=== PATIENT | female | born 1985 | race Caucasian/White ===

== ENCOUNTER 2025-02-21 12:34 | Outpatient (CLI) | payer OTHER, MEDICAID, SELFPAY ==
--- NOTE | 2025-02-21 12:15 | CRLHL7_ITS ---
For Patients: As a result of the Century Cures Act, medical imaging exams and procedure reports are released immediately into your electronic medical record. You may view this report before your referring provider. If you have questions, please contact your health care provider. OBSTETRICAL ULTRASOUND ??? FOLLOW-UP, 02/21/2025 INDICATION: Growth. CLINICAL HISTORY: MARIBEL by US: 05/29/2025 Gestational Age: 26 weeks 1 day COMPARISON: Previous imaging at [place]. TECHNIQUE: Real-time malloy-scale transabdominal imaging of the fetus was performed. FINDINGS: Fetus: Single Cervix: Visualized, 5 cm positioning: Vertex Amniotic Fluid: 6.4 cm SDP Placenta technique: Transabdominal Placenta position: Anterior heart rate: 139 bpm BIOMETRY: BPD: 6.7 cm, 27 weeks 0 days, 72% HC: 24.7 cm, 26 weeks 6 days, 48% AC: 23.3 cm, 27 weeks 5 days, 84% FL: 5 cm, 26 weeks 6 days, 59% FL/AC Ratio: 21.44% HC/AC ratio: 1.06 EFW: 1052 grams; 2 lbs. 5 oz. age by this ultrasound: 27 weeks 1 day MARIBEL by this ultrasound: 05/22/2025 Percentile by MARIBEL: 84% IMPRESSION: 1. Sonographic gestational age 27 weeks 1 day and sonographic due date 05/22/2025. Sonographic age is 1 week ahead of the clinical age. 2. Estimated weight is 84th percentile. Abdominal circumference is 84th percentile. CANDELARIO ACOSTA M.D. Diagnostic Radiologist [email or web address] Transcribed: 5:[address]/Dictated by: Candelario Acosta MD @ 02/21/2025 3:10:00 PM (Electronically Signed)
== END 2025-02-21 12:35 | disposition home or self-care (01) ==
LOC: US 12:34
PROVIDERS: PCP Student in an Organized Health Care Education/Training Program; Visit Provider Advanced Practice Midwife
DX: O36.5920 Maternal care for other known or suspected poor fetal growth, second trimester, not applicable or unspecified (principal); Z3A.26 26 weeks gestation of pregnancy
CPT/HCPCS: 76815

== ENCOUNTER 2025-02-21 12:41 | Outpatient (CLI) | payer OTHER, MEDICAID, SELFPAY | END 2025-02-21 12:42 | disposition home or self-care (01) | PROVIDERS: PCP Student in an Organized Health Care Education/Training Program; Visit Provider Advanced Practice Midwife | DX: O09.522 Supervision of elderly multigravida, second trimester (principal); O26.892 Other specified pregnancy related conditions, second trimester; Z67.91 Unspecified blood type, Rh negative; Z3A.26 26 weeks gestation of pregnancy | CPT/HCPCS: 82306; 82310; 82607; 82728; 84425; 86592; 86850; J2791 ==

== ENCOUNTER 2025-03-21 12:46 | Outpatient (CLI) | payer MEDICAID, SELFPAY ==
--- NOTE | 2025-03-21 13:00 | CRLHL7_ITS ---
For Patients: As a result of the Century Cures Act, medical imaging exams and procedure reports are released immediately into your electronic medical record. You may view this report before your referring provider. If you have questions, please contact your health care provider. OB ULTRASOUND MARIBEL by US: 05/29/2025. GA: 30 w, 1 d. Single. Comparison: 02/21/2025. INDICATION: Bariatric surgery, growth. TECHNIQUE: Real time grayscale imaging of the fetus was performed. Transabdominal. CERVIX: Not visualized. POSITIONING: Vertex. AMNIOTIC FLUID: 24.6 cm AARON. 8.4 cm. SDP (N: greater than 2 x 1 cm) PLACENTA: Technique: Transabdominal. PLACENTA POSITION: Anterior. DOPPLER: heart rate: 132 bpm. BIOMETRY: BPD: 7.9 cm. 31 w, 5 d, 82.6 percent. HC: 29.1 cm. 32 w, 1 d, 70.8 percent. AC: 27.8 cm. 31 w, 6 d, 88.2 percent. FL: 5.7 cm. 30 w, 0 d, 29.5 percent. FL/AC ratio: 20.6 percent. HC/AC ratio: 1.1. EFW: 1730 g. Weight: 3 lbs, 13 oz. age by this US: 31 w, 3 d. MARIBEL by this US: 05/20/2025. Percentile by MARIBEL: 76.2 percent. IMPRESSION: 1. Sonographic gestational age 31 weeks 3 days and sonographic due date 05/20/2025. Sonographic age is 9 days ahead of the clinical age. 2. Estimated weight 76th percentile. Abdominal circumference 88th percentile. 3. Amniotic fluid single deepest pocket 8.4 cm. AARON 24.6 cm. Candelario Andrade M.D. Diagnostic Radiologist [email or web address] DIANA/aixa kruse/Dictated by: Candelario Andrade MD @ 03/21/2025 2:03:00 PM (Electronically Signed)
== END 2025-03-21 12:47 | disposition home or self-care (01) ==
LOC: US 12:46
PROVIDERS: PCP Student in an Organized Health Care Education/Training Program; Visit Provider Advanced Practice Midwife
DX: O09.523 Supervision of elderly multigravida, third trimester (principal); O36.5930 Maternal care for other known or suspected poor fetal growth, third trimester, not applicable or unspecified; Z98.84 Bariatric surgery status; Z3A.30 30 weeks gestation of pregnancy
CPT/HCPCS: 76816

== ENCOUNTER 2025-04-04 11:10 | Outpatient (CLI) | payer OTHER, MEDICAID, SELFPAY ==
--- NOTE | 2025-04-04 11:30 | CRLHL7_ITS ---
For Patients: As a result of the Cures Act, medical imaging exams and procedure reports are released immediately into your electronic medical record. You may view this report before your referring provider. If you have questions, please contact your health care provider. OB ULTRASOUND MARIBEL by US: 05/29/2025. GA: 32 w, 1 d. Single. Comparison: Ultrasound 03/21/2025, 02/21/2025. INDICATION: Mild polyhydramnios. TECHNIQUE: Multiple transabdominal grayscale, color and M-Mode Doppler images of the fetus were obtained. CERVIX: Not visualized. POSITIONING: Vertex. AMNIOTIC FLUID: 24.1 cm AARON. 7.9 cm. SDP PLACENTA: Technique: Transabdominal. PLACENTA POSITION: Anterior. DOPPLER: heart rate: 154 bpm. IMPRESSION: Upper limits normal amniotic fluid. Randal Simms M.D. Body/Diagnostic Radiologist [email or web address] YAMILE/aixa jkarthik/Dictated by: Randal Simms MD @ 04/09/2025 9:32:00 AM (Electronically Signed)
== END 2025-04-04 11:11 | disposition home or self-care (01) ==
LOC: US 11:10
PROVIDERS: PCP Student in an Organized Health Care Education/Training Program; Visit Provider Advanced Practice Midwife
DX: O40.3XX0 Polyhydramnios, third trimester, not applicable or unspecified (principal); Z3A.32 32 weeks gestation of pregnancy
CPT/HCPCS: 76815

== ENCOUNTER 2025-04-18 11:51 | Outpatient (CLI) | payer OTHER, MEDICAID, SELFPAY ==
--- NOTE | 2025-04-18 12:15 | CRLHL7_ITS ---
For Patients: As a result of the Century Cures Act, medical imaging exams and procedure reports are released immediately into your electronic medical record. You may view this report before your referring provider. If you have questions, please contact your health care provider. LIMITED OB ULTRASOUND FOLLOW-UP MARIBEL by US: 05/29/2025. GA: 34 w, 1 d. INDICATION: AMA, Bariatric Surgery. TECHNIQUE: Real time malloy scale imaging of the fetus was performed. Evaluate anatomy. Transabdominal. position: Vertex. Cervix: Not Visualized. Placenta: Anterior. Technique: Transabdominal. Amniotic Fluid: 24.4 cm. DSP: 7.9 cm SDP (normal - greater than 2 x 1 cm) Heart Rate: 123 bpm. BIOMETRY BPD: 8.7 cm, 35 weeks, 0 days, 74th percentile. HC: 30.7 cm, 34 weeks 1 day, 17th percentile. AC: 31.1 cm, 35 weeks 0 days, 78th percentile. FL: 6.4 cm, 33 weeks 1 day, 17th percentile. FL/AC Ratio: 20.66. HC/AC Ratio: 0.99. EFW: 2428 grams, 5 lb, 6 oz. Age by This US: 34 weeks 2 days. MARIBEL by This US: 05/28/2025. Percentile by MARIBEL: 53rd percentile. IMPRESSION: 1. Sonographic gestational age 34 weeks 2 days and sonographic due date 05/28/2025. Good correlation with dates. 2. Estimated weight 53rd percentile. Abdominal circumference 78th percentile. 3. Amniotic fluid single deepest pocket 7.9 cm. AARON 24.4 cm. Candelario Andrade M.D. Diagnostic Radiologist [email or web address] DIANA/vipul DW/Dictated by: Candelario Andrade MD @ 04/19/2025 7:07:00 AM (Electronically Signed)
== END 2025-04-18 11:52 | disposition home or self-care (01) ==
LOC: US 11:51
PROVIDERS: PCP Student in an Organized Health Care Education/Training Program; Visit Provider Advanced Practice Midwife
DX: O09.523 Supervision of elderly multigravida, third trimester (principal); Z3A.34 34 weeks gestation of pregnancy; Z98.84 Bariatric surgery status
CPT/HCPCS: 76816

== ENCOUNTER 2025-04-18 12:30 | Outpatient (CLI) | payer OTHER, MEDICAID, SELFPAY | END 2025-04-18 12:31 | disposition home or self-care (01) | LOC: NFLDREF 04-23 18:56 | PROVIDERS: PCP Student in an Organized Health Care Education/Training Program; Referring Provider Student in an Organized Health Care Education/Training Program; Visit Provider Advanced Practice Midwife | DX: O09.523 Supervision of elderly multigravida, third trimester (principal); Z3A.34 34 weeks gestation of pregnancy | CPT/HCPCS: 82306; 82310; 82607; 82728 ==

== ENCOUNTER 2025-05-02 12:08 | Outpatient (CLI) | payer OTHER, MEDICAID, SELFPAY ==
--- NOTE | 2025-05-02 12:15 | CRLHL7_ITS ---
For Patients: As a result of the Cures Act, medical imaging exams and procedure reports are released immediately into your electronic medical record. You may view this report before your referring provider. If you have questions, please contact your health care provider. OB ULTRASOUND MARIBEL by US: 05/29/2025. GA: 36 w, 1 d. COMPARISON: 04/18/2025, 04/04/2025, 03/21/2025. INDICATION: Mild polyhydramnios. TECHNIQUE: Real time malloy scale imaging of the fetus was performed. Transabdominal imaging performed. CERVIX: Not visualized. POSITIONING: Vertex. AMNIOTIC FLUID: 26.9 cm AARON. 9 cm. SDP (N: greater than 2 x 1 cm). PLACENTA: Technique: Transabdominal. PLACENTA POSITION: Anterior. DOPPLER: heart rate: 147 bpm. IMPRESSION: Amniotic fluid single deepest pocket 9.0 cm. AARON 26.9 cm. Candelario Andrade M.D. Diagnostic Radiologist [email or web address] RAISA/Dictated by: Candelario Andrade MD @ 05/02/2025 6:41:00 PM (Electronically Signed)
== END 2025-05-02 12:09 | disposition home or self-care (01) ==
LOC: US 12:08
PROVIDERS: PCP Student in an Organized Health Care Education/Training Program; Visit Provider Advanced Practice Midwife
DX: O40.3XX0 Polyhydramnios, third trimester, not applicable or unspecified (principal); Z3A.36 36 weeks gestation of pregnancy
CPT/HCPCS: 76815

== ENCOUNTER 2025-05-02 13:21 | Outpatient (CLI) | payer OTHER, MEDICAID, SELFPAY ==
[2025-05-03 13:51] LABS: Strep B DNA Probe Negative (Negative)
[2025-05-03 14:16] LABS: Strep B Susceptibility Needed? No
== END 2025-05-02 13:22 | disposition home or self-care (01) ==
LOC: NFLDREF 13:22
PROVIDERS: PCP Student in an Organized Health Care Education/Training Program; Visit Provider Obstetrics & Gynecology
DX: Z34.93 Encounter for supervision of normal pregnancy, unspecified, third trimester (principal); Z3A.36 36 weeks gestation of pregnancy
CPT/HCPCS: 87081; 87653

== ENCOUNTER 2025-05-11 03:03 | Inpatient (IN) | payer OTHER, MEDICAID, SELFPAY ==
[2025-05-11] VITALS (33 sets, daily range): BP systolic 105–151; BP diastolic 62–90; PULSE 63–118; RESP 14–20; TEMP 36.6–37; O2SAT 91–100; BMI 33.9
[2025-05-11 03:33] LABS: Hematocrit 38.0 % (33.0-51.0); Hemoglobin* 12.9 gm/dL (12.0-16.0); Immature Granulocytes Abs Auto 0.04 K/uL (0.00-0.30); Immature Granulocytes Pct Auto 0.4 %; Lymphocytes Absolute Auto 2.31 K/uL (0.90-2.90); Mean Corpuscular HGB Conc 34 gm/dL (32-36); Mean Corpuscular Hemoglobin 31 pg (26-34); Mean Corpuscular Volume 90 fL (80-100); RDW Coefficient of Variation % 12.9 % (11.5-15.5); Red Blood Count 4.21 m/uL (4.00-5.20); White Blood Count* 9.62 K/uL (4.50-11.00)
[2025-05-11 03:35] LABS: Slide Review Reflex No
--- NOTE | 2025-05-11 08:11 | W.PM.LDBA ---
Subjective History of Present Illness Date Seen: 05/11/25 Narrative: Patient is being admitted to Labor and Delivery for early labor. She is a 40 year old at 37 weeks, 3 days gestation. Her full history and physical was dictated by Dr. Connell on 05/09. Please see this for details. She has been kaylee regularly throughout the night. She has had periods of intense contractions, though these have most recently become less intense. Her cervical exam at admission was at 2 AM was 2 / 50 / -4. Repeat exam at 2:50 AM was 3.5 / 50 / -3. Specific Issues/Plans G 4 P 3 S.O.: [place]. (his first baby) Transfer at 23.1 weeks from [facility] # contractions 03/29. Received Betamethasone x2. Records received but no US records. No cervical length or concerns per her report. GBS negative at 31 weeks at [facility] Pt went back to [facility] on 04/16, noted to be unchanged at 2cm. #Polyhydramnios, Mild: dx at 30wks. AARON 24.6, SDP 8.4. testing worksheet completed 03/22. ? AARON every 2 weeks starting at 28 weeks or time of diagnosis 32 weeks: AARON 24.1 34 weeks: AARON 24.4 36 weeks: AARON: 26.9cm ? Growth US every 4 weeks? Recommend delivery: 39 0/7-40 6/7 weeks? IOL request from sent 05/02/25 for 05/26/25 at 39 4/7 weeks. # Multigravida Advanced Maternal Age NIPT within normal limits Plan level 2 ultrasound with MFM: Completed with [facility] Recommended by prior practice to consider IOL at 39 weeks; declines # Rh negative. RhoGAM: given 02/21 # History of bariatric surgery (Gastric bypass in 2019) CBC, ferritin, iron, vitamin B12, thiamine, folate, calcium, and vitamin-D labs drawn with initial OB labs. Vitamin-D and ferritin were low. Needs CBC, iron, ferritin, vitamin B12, calcium, and vitamin-D every trimester 26 weeks: All WNL 3rd trimester labs: ordered for 34 weeks Plan every 4 week growth ultrasounds in the 3rd trimester (conflicting info in [place] records, [facility] recommended growth at 26-28 and again at 32-34, her primary Ob recommended growths every 4 weeks) 26 weeks: EFW 84%ile 30 weeks: EFW 76%ile 34 & 38 weeks: requested via testing form on 03/21/25 We will not perform a 1 hour glucose test, but we will have her check fasting and postprandial blood glucose levels for 1 week at 28 weeks. [facility] at 38 weeks for hx of gastric bypass ([facility] recommended prior to 40 0/7 weeks) [place] recommended delivery at > 39 0/7 weeks? # Anemia in : Mild anemia due to iron deficiency. Iron studies consistent with iron deficiency. Oral supplementation every other day. Hgb 12.2 at 34 weeks # Vitamin-D deficiency. Taking daily vitamin D3 800 IU # Constipation Recommend discontinuing oral iron and continuing with iron infusions. Recommend at least 64 oz of water per day and 2 tablets senna twice daily until stools are regular, then she can cut back to q.h.s. and as needed. # Generalized anxiety disorder: Not on medication. No mood concerns. # Bipolar disorder: Taking Ziprasidone (Geodon) and advised to continue by psychiatry and PCP. infant may have withdrawal symptoms Per patient, MFM consult re: use of Geodon did not occur. Consider consult or discuss MotherToBaby info with patient at 28 week visit. Pt declines consult Placed psychiatry referral, as her psych left the practice. Ordered US f/u on anatomy (diaphragm and right forearm) with MFM at [place]: See 02/21 note 10/22/2024: Pap smear: LSIL, negative HPV 10/22/2024: Chlamydia and gonorrhea negative, syphilis nonreactive, HIV negative, rubella positive/2.1, varicella positive/2.0, hepatitis-C antibody negative, hepatitis-B antigen nonreactive, hepatitis-B antibody positive/66.39, hepatitis B core antibody negative 10/24/2024: NIPT: Low risk, carrier screening negative 02/14/2025: Hemoglobin 10.7, platelets 264, blood type A negative, antibody screen negative, urine culture no growth, Ultrasound 10/22/2024: Single intrauterine with dating per full report. Ultrasound 12/27/2024: Boo intrauterine . Cephalic presentation. No anomalies detected. However, the anatomy survey remains incomplete due to position. Recommend follow-up in 1-4 weeks for completion of anatomy survey. Normal EFW. Subjectively normal amniotic fluid volume. Placenta fundal, no evidence of Vasa or placenta previa. Ultrasound 01/10/2025: Boo intrauterine in breech presentation. Most of the anatomy survey images were completed and no abnormalities were detected. However, the diaphragm and right forearm remains suboptimal due to position. Recommendation: Consider an additional attempt to complete the anatomy survey during the next ultrasound scheduled for growth assessment or sooner if patient prefers. Ultrasound 04/10/2025: SIUP AMNIOTIC FLUID: 24.1 cm AARON. 7.9 cm. SDP. IMPRESSION: Upper limits normal amniotic fluid. 04/18/25: EFW 53%, AC 78%, cephalic. Mental Health: 04/04 Tdap: 04/18 OB - Problem Based A/P Additional Plan (1) Polyhydramnios affecting : Problem details: Mild Status: Acute (2) Threatened labor: Problem details: at 31 weeks Status: Acute Plan Early labor, progressing steadily in cervical dilation. By cervical dilation, she is currently 5.5 cm, because of active labor by that definition. Given mild polyhydramnios, advanced cervical dilation and lack of engagement of head, I cannot support discharge of patient due to risk of cord prolapse. I recommended augmentation of early labor with Pitocin and ambulation to bring head into pelvis. I will then plan for AROM when this can be more safely performed. Continuous monitoring while on Pitocin. Anticipate spontaneous vaginal delivery. Delivery/Labor/Induction Plan Induction method: per pitocin protocol OB Exam Physical Exam Vital signs: Temp Pulse Resp BP Pulse Ox 98.6 F 87 18 116/65 98 05/11/25 02:02 05/11/25 04:52 05/11/25 02:02 05/11/25 04:52 05/11/25 02:01 Narrative: Physical exam: General: No acute distress Psych: Alert and oriented x3 HEENT: Normocephalic, atraumatic Heart: Regular rate and rhythm, no murmur rub or gallop Lungs: Clear to auscultation bilaterally Abdomen: Soft, nontender, gravid, cephalic lie Lower extremities: Trace bilateral edema, no erythema Pelvic exam: Cervix 5.5 cm, 60% effaced, -3 station. head is directly over the cervix, but not engaged. tracing: Baseline 130, accelerations present, no decelerations, moderate variability. Most recent history, contractions are occurring approximately every 5 minutes.
[2025-05-11] MEDS: LACTATED RINGERS 1000 ML 1,000 ML 125 ML IV ×2 (09:59→14:28)
[2025-05-11] MEDS: OXYTOCIN 30 unit/500 ML in NS 30 UNIT/500 ML BAG IVPB (10:00)
--- NOTE | 2025-05-11 14:32 | P.OBPN_ITS ---
Subjective Time Seen by Provider: 14:15 Date Seen: 05/11/25 Narrative: Eli is a 40 yo woman at 37 3/7 weeks' gestation here for labor in the setting of polyhydramnios. At last check about 4 hours ago, cervix was dilated to 5.5 cm but station was still high. Oxytocin infusion was started and ambulation was recommended. She is now feeling contractions more frequently with more pressure. Objective Exam: Gen - breathing and tearful through contractions SVE - 5.5 / 80 / -3 with tensely bulging bag head moved over cervix during contractions with help of fundal and suprapubic pressure. AROM for clear fluid Vital Signs: Last Vital Signs Temp 97.9 F 05/11/25 14:27 Pulse 77 05/11/25 14:13 Resp 14 05/11/25 09:01 BP 127/72 05/11/25 14:13 Pulse Ox 98 05/11/25 02:01 Comments: tracing: Baseline 135 / accelerations present / no decelerations / m oderate variability. Contractions Q 2 minutes Contractions Pitocin Rate (mU/min): 6 Assessment Assessment: early labor Amniotic Membrane Status: AROM Status: Category l Heart Rate Baseline: 135 Data Review Specialist Variability: Moderate (6-25) Monitor Accelerations: Absent Monitor Decelerations: None Tracing Comments: Category 1 Labor Progress: Not yet active labor, but change in effacement. Now s/p AROM Maternal Status: Reassuring Plan Plan: Continuous monitoring Antcipate .
[2025-05-11] MEDS: LIDOCAINE 2% (PF) 5 ML VIAL EPIDURAL (15:51)
[2025-05-11] MEDS: ROPIVACAINE 0.2% 100 ml 100 ML 12 MG EPIDURAL (15:51)
--- NOTE | 2025-05-11 15:58 | PM.ANBPRC ---
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 [employer] What is your current living situation?: I presently have a place to live Problems where you live: no known problems In the past 12 months, utilities in danger of being shut off: no In past 12 months, lack of transportation kept you from medical appts, meetings, work, or getting things needed for daily living: no In the past 12 mos, have been you worried that your food would run out before you had money to buy more?: never true In the past 12 mos, the food you bought just didn't last and you didn't have money to buy more?: never true Smoking Status: Never smoker How often does anyone, including family, friends and others, physically hurt you: never How often does anyone, including family, friends and others, insult or talk down to you: never How often does anyone, including family, friends and others, threaten you with harm: never How often does anyone, including family, friends and others, scream or curse at you: never Meds Home Medications and Allergies Home Medications ?Medication ?Instructions ?Recorded ?Confirmed ?Type cholecalciferol (vitamin D3) 10 20 mcg PO DAILY 01/31/25 05/11/25 History mcg (400 unit) tablet (Vitamin D3) cyanocobalamin (vitamin B-12) 1,000 mcg subcut MONTHLY 01/31/25 05/11/25 History 1,000 mcg/mL injection solution docosahexaenoic acid 200 mg 200 mg PO DAILY 01/31/25 05/11/25 History capsule ( DHA) ferrous sulfate 325 mg (65 mg 325 mg PO Q1D 01/31/25 05/11/25 History iron) tablet loratadine 10 mg tablet (Claritin) 10 mg PO QDAY 01/31/25 05/11/25 History sennosides 8.6 mg tablet (senna) 17.2 mg PO BID PRN constipation 01/31/25 05/11/25 History ziprasidone HCl 20 mg capsule 20 mg PO BID 01/31/25 05/11/25 History Allergies Allergy/AdvReac Type Severity Reaction Status Date / Time No Known Drug Allergies Allergy Verified 05/09/25 12:43 Results Labs Labs: Laboratory Results - last 24 hr 05/11/25 03:28 WBC 9.62 RBC 4.21 Hgb 12.9 Hct 38.0 MCV 90 MCH 31 MCHC 34 RDW Coeff of Ray 12.9 Plt Count 217 Neut % (Auto) 69.1 Lymph % (Auto) 24.0 [place] % (Auto) 5.7 Eos % (Auto) 0.7 Baso % (Auto) 0.1 Neut # (Auto) 6.64 Lymph # (Auto) 2.31 [place] # (Auto) 0.50 Eos # (Auto) 0.07 Baso # (Auto) 0.01 Abs Immat Gran (auto) 0.04 Imm/Tot Granulo (auto) 0.4 Blood Type A Negative Antibody Screen POSITIVE Vital Signs Vital Signs: Last Vital Signs Temp 97.9 F 05/11/25 14:27 Pulse 89 05/11/25 15:55 Resp 14 05/11/25 09:01 BP 123/65 05/11/25 15:55 Pulse Ox 97 05/11/25 15:54 Weight: 101.151 kg Height: 172.72 cm Anesthesia Procedures Epidural Insertion Patient Location: OB Start Time: 15:20 Stop Time: 15:58 Start Date: 05/11/25 Stop Date: 05/11/25 Reason for Block: procedure for pain Patient Position: sitting Performed By: Ike Brunner Preanesthetic Checklist: IV checked, risks and benefits discussed, monitors and equipment checked, pre-op evaluation, timeout performed and anesthesia consent Prep: chlorhexidine gluconate Monitoring: blood pressure monitoring, continuous pulse oximetry and heart rate Approach: midline Vertebral Space: lumbar (1-5) Epidural Technique: CECY saline Needle Type: Tuohy needle Injection Technique: continuous catheter Needle gauge: 17 Needle Length (cm): 10 cm Needle Insertion Depth (cm): 7 Catheter Gauge: 19 Catheter Type: multi-orifice Catheter at skin depth (cm): 13 Test Dose Result: negative and lidocaine 1.5% with epinephrine 1 to 200,000
--- NOTE | 2025-05-11 16:32 | W.PM.VAGDEL1 ---
Procedure Delivery date: 05/11/25 Procedure Done: Global Procedure Details: The patient is a 40 year-old G 4 P 3-0-0-3 woman admitted on 05/11/2025 at 37 Weeks, 3 Days gestation for early labor.? Cervical exam on admission was 2 / 50 / -4 with membranes intact in vertex presentation.? Contractions were initially frequent, and later abated.? heart rate demonstrated baseline 130 bpm with moderate variability, positive accelerations, no decelerations; a category 1 tracing.? AROM occurred at 2:20 p.m. with clear fluid. ? Labor Analgesia:? Epidural ? Pitocin:? Yes ? Labor onset:? Midnight on 05/11/2025 ? Complete:? 4:09 p.m. ? Pushing:? 4:09 p.m. ? heart tones during second stage were reassuring. ? At for 2:00 p.m. a viable male infant delivered in vertex OA presentation over intact perineum via spontaneous vaginal delivery.? Infant was placed on maternal abdomen.? Cord was clamped and cut after a 30-60 second delay.? Nose and mouth were bulb suctioned.? Infant weight pending.? 6 at 1 minute and 8 at 5 minutes.? Shoulder dystocia: No.? Nuchal cord: No. ? Placenta delivered spontaneously and complete at 4:23 p.m. with a 3 vessel cord. A marginal cord insertion was noted. ? Mother and infant were stable after delivery. ? Lacerations:? Left periurethral, repaired with 2 interrupted sutures of 4-0 Vicryl. ? Blood loss: 100 mL. Blood loss measurement type: QBL ? Sponge and needles counts are correct. Events: Polyhydramnios Intrapartal Events: Labor Augmentation Delivery augmentation: rupture of membranes and pitocin Delivery monitor: external FHT Route of delivery: Episiotomy description: None Laceration description: Periurethral - 1st Degree Delivery repair: Vicryl Estimated blood loss (mL): 100 Anesthesia type: Epidural Disposition: floor [place] Infant Gender: Male presentation: vertex Placental Delivery Description: Spontaneous Cord Description: 3 Vessels
[2025-05-11] MEDS: ACETAMINOPHEN 500 MG TABLET 1000 MG PO (19:22)
[2025-05-11] MEDS: FERROUS SULFATE 325 MG TABLET PO (20:57)
[2025-05-12 02:15] VITALS: BP 120/79; PULSE 67; RESP 16; O2SAT 97
[2025-05-12] MEDS: ACETAMINOPHEN 500 MG TABLET 1000 MG PO ×3 (02:25→18:07)
[2025-05-12 05:51] VITALS: BP 119/77; PULSE 77; RESP 16; TEMP 36.5; O2SAT 96
[2025-05-12 05:55] LABS: Hemoglobin* 10.7 gm/dL (12.0-16.0)
[2025-05-12 08:24] VITALS: BP 109/68; PULSE 63; RESP 16; TEMP 36.9; O2SAT 98
[2025-05-12 09:03] LABS: Hematocrit 34.9 % (33.0-51.0); Hemoglobin* 11.5 gm/dL (12.0-16.0); Immature Granulocytes Abs Auto 0.02 K/uL (0.00-0.30); Immature Granulocytes Pct Auto 0.2 %; Mean Corpuscular HGB Conc 33 gm/dL (32-36); Mean Corpuscular Hemoglobin 31 pg (26-34); Mean Corpuscular Volume 93 fL (80-100); RDW Coefficient of Variation % 13.0 % (11.5-15.5); Red Blood Count 3.75 m/uL (4.00-5.20); White Blood Count* 10.92 K/uL (4.50-11.00)
[2025-05-12 09:05] LABS: Lymphocytes Absolute Auto 1.60 K/uL (0.90-2.90); Slide Review Reflex No
[2025-05-12] MEDS: LORATADINE 10 MG TABLET PO (09:07)
[2025-05-12] MEDS: DOCUSATE SODIUM 100 MG CAPSULE PO (09:07)
--- NOTE | 2025-05-12 09:14 | P.OBPN_ITS ---
OB - PN:Subj Subjective Date Seen: 05/12/25 Interval history: Eli is a 40-year-old G4 now P 4 woman who is status post normal spontaneous vaginal delivery at 37 weeks, 3 days gestation on 05/11/2025. She had an uncomplicated vaginal . She had a left periurethral laceration. She had several mildly elevated BPs during active labor, and then had one diastolic of 90 overnight. Today, on PPD #1., she is doing well. She is ambulating and urinating without difficulty. She denies heavy bleeding. She is using Geodon and is concerned about impacts on her with . OB - PN: Obj Exam Physical Exam: Vital signs: Temp Pulse Resp BP Pulse Ox O2 Del Method 98.5 F 63 16 109/68 98 Room Air 05/12/25 08:24 05/12/25 08:24 05/12/25 08:24 05/12/25 08:24 05/12/25 08:24 05/12/25 08:24 Narrative: General: Pleasant, no acute distress Heart: Regular rate and rhythm, no murmur or gallop Lungs: Clear to auscultation bilaterally Abdomen: Soft, nontender, fundus around umbilicus Lower extremities: 2-3+ edema bilaterally OB - PN: Obj Data Labs Labs: Laboratory Results - last 24 hr 05/12/25 05/12/25 05:40 08:58 WBC 10.92 RBC 3.75 L Hgb 10.7 L 11.5 L Hct 34.9 MCV 93 MCH 31 MCHC 33 RDW Coeff of Ray 13.0 Plt Count 161 Neut % (Auto) 80.0 H Lymph % (Auto) 14.6 L [place] % (Auto) 4.6 Eos % (Auto) 0.5 Baso % (Auto) 0.1 Neut # (Auto) 8.70 H Lymph # (Auto) 1.60 [place] # (Auto) 0.50 Eos # (Auto) 0.05 Baso # (Auto) 0.01 Abs Immat Gran (auto) 0.02 Imm/Tot Granulo (auto) 0.2 Screen Negative OB - PN: A/P Delivery Assessment and Plan (1) Anemia: Status: Acute Assessment and Plan: Mild anemia, Hb 10.7. Continue ferrous sulfate 325 mg QOD (2) Bipolar disorder: Status: Acute Assessment and Plan: Maintained on Geodon, but also . Her psychiatrist has said that this medication is compatible; will discuss with . (3) Normal spontaneous vaginal delivery: Status: Acute Assessment and Plan: appropriate course (4) Gestational hypertension: Status: Acute Assessment and Plan: Intermittently mild elevations of BP; 3 during active labor and one overnight. IN an abundance of caution, will obtain labs now. I favor continued hospitalization overnight to monitor blood pressures. Plan day: 1
[2025-05-12 09:19] LABS: Alanine Aminotransferase* 15 U/L (4-35); Aspartate Amino Transferase* 28 U/L (12-35); Blood Urea Nitrogen* 9 mg/dL (5-24); Creatinine* 0.6 mg/dL (0.5-1.5); Est. Creatinine Clearance* 128.24; Estimated Glomerular Filt Rate 118 ml/min
[2025-05-12 12:56] VITALS: BP 115/70; PULSE 83; RESP 18; TEMP 36.7; O2SAT 97
--- NOTE | 2025-05-12 13:07 | PM.ANPOST ---
Post Anesthesia Note Post Anesthesia Note Patient seen: Inpatient Respiratory Status: adequate Cardiovascular Status: adequate Mental Status: baseline Pain: adequate Temp: baseline Anesthetic awareness: N/A Complications: none Follow care: none
[2025-05-12 16:20] VITALS: BP 115/78; PULSE 62; RESP 16; TEMP 36.7; O2SAT 96
[2025-05-12 20:00] VITALS: BP 116/75; PULSE 76; RESP 17; TEMP 36.7; O2SAT 97
[2025-05-13 02:09] VITALS: BP 117/78; PULSE 64; RESP 18; TEMP 36.6; O2SAT 97
[2025-05-13] MEDS: DOCUSATE SODIUM 100 MG CAPSULE PO (08:36)
[2025-05-13] MEDS: LORATADINE 10 MG TABLET PO (08:36)
--- NOTE | 2025-05-13 08:36 | PM.OBDSVD1 ---
DS: Providers Provider Date Seen: 05/13/25 Date of admission: 05/11/25 03:03 Primary care physician: Isatu Yousif MD Admitting Clinician: Ruth Ann Connell MD Attending Physician on discharge: Sharon Stoner CNM DS: Diagnosis Discharge Diagnosis (1) care and examination immediately after delivery: Status: Acute (2) Gestational hypertension: Status: Acute (3) Lactating mother: Status: Acute (4) Generalized anxiety disorder: Status: Acute (5) Bipolar disorder: Status: Acute Exam Narrative: Exam Narrative: GENERAL APPEARANCE:? normal affect, alert, no distress MOOD:? appropriate CHEST:? clear to auscultation HEART:? regular rate and rhythm ABDOMEN:? soft, non-tender the uterine fundus is At Umbilicus, Midline and is appropriate for the stage of recovery. PERINEUM:? mild edema of the perineum. EXTREMITIES:? normal and no edema Const: Vital Signs, click to edit/add: Vital Signs - 24 hr 05/12/25 12:56 05/12/25 16:20 05/12/25 20:00 Temperature 98.1 F 98.1 F 98.0 F Pulse Rate [Pulse Oximeter] 83 62 76 Respiratory Rate 18 16 17 Blood Pressure [Ri ght Arm] 115/70 115/78 116/75 Pulse Oximetry 97 96 97 Oxygen Delivery Me thod Room Air Room Air Room Air 05/13/25 02:09 Temperature 97.9 F Pulse Rate [Pulse Oximeter] 64 Respiratory Rate 18 Blood Pressure [Ri ght Arm] 117/78 Pulse Oximetry 97 Oxygen Delivery Me thod Room Air Documenting provider has reviewed patient's vital signs: yes OB - DS: Summary Hospital Course Hospital Course: Eli is a 40 y.o. G 4 P 4 who was admitted to [facility] for labor. ?She had a NVD that was uncomplicated. The patient feels well. ?The pain is well controlled with current medications. ?She has no new complaints. ?She is breast feeding and reports things are going well. the patient has done well.? Vitals have been stable.? She has remained afebrile.? Has a good appetite, is tolerating a general diet. ?She is voiding without difficulty.? She is passing gas and has not had a bowel movement.? She is ambulating and denies any dizziness.? Has small amount of rubra lochia. She was diagnosed with GHTN in labor. Problems: GHTN Discharge home with baby.? Follow up in 2 weeks and 6 weeks.? , may see if needed? Hgb 11.5.? GHTN/Pre-E/Elevated BP diagnosed by elevated BP greater than 4 hours apart? Labs WNL Discharge home with BP cuff if does not already have one? Follow up in 3-5 days? Call for signs/symptoms of preeclampsia? For pain control of perineum, breast and pelvic pain, take 600 mg Ibuprofen every 6 hours as needed by mouth or 1000 mg acetaminophen (Tylenol) every 6 hours by mouth as needed. You can alternate these so you are taking something every 3 hours as needed. A heating pad can also be used for your abdomen or breasts. You may also take docusate sodium up to twice daily to soften your stools and help to prevent constipation. You may wean off of it when your stools return to normal.? Peripartum Data delivery method: Vaginal Laceration description: Periurethral - 1st Degree [place] Gender: Male Infant Discharge Plan: Home Status at Discharge Functional status at discharge: independent ambulation Overall status at discharge: patient is progressing back to baseline Time Spent with Patient Time attestation: Total time spent providing and/or coordinating discharge services: Time spent: Less than 30 minutes Discharge Plan Discharge Disposition: Home, Self-Care Date of Admission: 05/11/25 03:03 Attending Provider on Discharge: Sharon Stoner Primary Care Provider: Isatu Yousif Condition: Stable Anticipated Discharge Date/Time: 05/13/25 12:00 Discharge Medications: New docusate sodium 100 mg Capsule 100 mg PO DAILY Qty: 0 0RF acetaminophen 500 mg Tablet 1,000 mg PO Q6H PRNQty: 0 0RF Continued cholecalciferol (vitamin D3) [Vitamin D3] 10 mcg (400 unit) tablet 20 mcg PO DAILY sennosides [senna] 8.6 mg tablet 17.2 mg PO BID PRN (Reason: constipation) ziprasidone HCl 20 mg capsule 20 mg PO BID cyanocobalamin (vitamin B-12) 1,000 mcg/mL solution 1,000 mcg subcut MONTHLY ferrous sulfate 325 mg (65 mg iron) tablet 325 mg PO Q1D loratadine [Claritin] 10 mg tablet 10 mg PO QDAY DHA 200 mg capsule 200 mg PO DAILY Discharge Orders: Discharge Order (Routine); Ordered 05/13/25 Ordered By: Sharon Stoner Patient Education: OB Vaginal/Breast Feeding Additional Instructions: Discharge instructions were reviewed with the patient including signs and symptoms of infection and home going medications Nothing vaginally for 6 weeks: no tampons or intercourse Off Work or School for 6 weeks Follow [facility] for a BP check?3-5 days Call with BP greater than or equal to 160/110 or sustained blood pressures of 140/90 Severe headache that doesn't improve after taking medications Changes in vision, including temporary loss of vision, blurred vision, and/or light sensitivity Upper abdominal pain (usually under ribs on the right side) 2-week visit: discuss feeding concerns, review control options and screen for anxiety/depression. 6-week visit for an annual exam. consultation services are available to all mothers and babies for the first year after delivery.? To make an appointment, please call [phone]. Activity Level: Activity as Tolerated and No strenuous activity Discharge Diet: Regular Follow Up App[facility]ments: [facility] [Provider Group] Forms: [facility], [facility] Instructions
[2025-05-13] MEDS: ACETAMINOPHEN 500 MG TABLET 1000 MG PO (08:49)
[2025-05-13 08:52] VITALS: BP 121/79; PULSE 87; RESP 16; TEMP 36.8; O2SAT 97
== END 2025-05-13 14:08 | disposition home or self-care (01) | DRG 807 ==
LOC: OB OUT 03:03 → OB 03:03
PROVIDERS: Obstetrics & Gynecology; Admitting Provider Obstetrics & Gynecology; PCP Student in an Organized Health Care Education/Training Program; Visit Provider Obstetrics & Gynecology
DX: O40.3XX0 Polyhydramnios, third trimester, not applicable or unspecified (principal); Z37.0 Single live birth; O13.4 Gestational [pregnancy-induced] hypertension without significant proteinuria, complicating childbirth; O70.0 First degree perineal laceration during delivery; O26.893 Other specified pregnancy related conditions, third trimester; Z67.11 Type A blood, Rh negative; O99.344 Other mental disorders complicating childbirth; F31.9 Bipolar disorder, unspecified; F41.1 Generalized anxiety disorder; Z79.899 Other long term (current) drug therapy; O99.844 Bariatric surgery status complicating childbirth; O99.02 Anemia complicating childbirth; D53.9 Nutritional anemia, unspecified; Z3A.37 37 weeks gestation of pregnancy
CPT/HCPCS: 01967; 36415; 82565; 84450; 84460; 84520; 85018; 85025; 85461; 86592; 86850; 86870; 86880; 86900; 86901; A9270; J2791; J2795; J7120